=== PATIENT | female | born 1940 ===

== ENCOUNTER 2016-10-22 16:15 | Inpatient (IN) | payer MEDICARE, OTHER ==
[~2016-10-22] VITALS: Ht 162.6 cm; Wt 91.1 kg
--- NOTE | ~2016-10-22 | HP ---
PATIENT'S NAME: CANDIDO AUGUSTE [facility] AGE: 76 Y [address] ROOM: [address] [place], [place] [address] LOCATION: [facility] ADMIT DATE: 10/22/2016 History & Physical DISCHARGE DATE: FAMILY PHYSICIAN: Ochoa Guzman MD ATTENDING PHYSICIAN: SAMIRA RYAN DATE OF SERVICE: CHIEF COMPLAINT: Acute respiratory failure with hypoxia, hypertensive emergency. HISTORY OF PRESENT ILLNESS: This is a 76-year-old female with history of COPD, hypertension, who presented to the emergency room with an acute respiratory distress. The patient tells me that she has been having upper respiratory-type symptoms with cough since 3- 4 days ago and had seen her primary care physician at the [facility] for evaluation on Thursday and was started on Z-Curt and steroids for management of that. However, the patient continued to feel worse and went in for an urgent visit to the clinic today. Upon her arrival there, she was found to be in severe respiratory distress and the squad was called and she was brought over to the emergency room for evaluation. During that initial evaluation, the patient's blood pressure was noted to be 220s/110s, and she was in severe respiratory distress. The patient was started on BiPAP and given 40 mg IV Lasix. Her blood pressure improved with addition of nitro drip, and the patient improved significantly and symptomatically after that. The patient during my evaluation at bedside tells me that she feels much better now and she is off BiPAP. Denies any chest pain, chest tightness, dizziness, or lightheadedness. She does complain of soreness in her voice and sore throat. Denies any palpitations, vision changes, headaches. Denies any numbness, tingling, and weakness of her extremities as well. She does have a cough that is predominantly nonproductive. She denies any fever or chills. PAST MEDICAL HISTORY: 1. Hypertension. 2. COPD. 3. Hyperlipidemia. SOCIAL HISTORY: The patient has now quit. Denies any use of alcohol or drugs. FAMILY HISTORY: The patient does not report new history of hypertension, diabetes, respiratory problems including COPD in the family. REVIEW OF SYSTEMS: PATIENT'S NAME: CANDIDO AUGUSTE [facility] AGE: 76 Y [address] ROOM: [address] [place], [place] [address] LOCATION[facility] ADMIT DATE: 10/22/2016 History & Physical DISCHARGE DATE: FAMILY PHYSICIAN: Ochoa Guzman MD ATTENDING PHYSICIAN: SAMIRA RYAN A 10-point review of systems was conducted and were all negative except as mentioned in the HPI. PHYSICAL EXAMINATION: VITAL SIGNS: Blood pressure 220/110, afebrile, respiratory rate 22, pulse 71, saturating 95% on 3 liters of oxygen per nasal cannula. GENERAL: The patient is awake, alert, and oriented x3, in no apparent distress. HEENT: Moist mucous membranes. No conjunctival pallor or scleral icterus noted. SKIN: Without rash or lesions. LUNGS: Diffusely diminished breath sounds, but no wheezing, rhonchi, or rales appreciated. HEART: S1 and S2. Regular rate and rhythm. ABDOMEN: Soft, nontender, and nondistended with positive bowel sounds. MUSCULOSKELETAL: No joint pain, redness, swelling, effusion appreciated. No muscle pain appreciated as well. NEURO: Grossly nonfocal. EXTREMITIES: Without edema. LABORATORY DATA: Potassium is 3.4. Pro-BNP 1700, baseline around 1000. Troponin and EKG nondiagnostic. ASSESSMENT AND PLAN: 1. Hypertensive emergency with acute respiratory failure with hypoxia. The patient's initial blood pressure was 220/120. The patient is symptomatically much improved after initiation of a nitro drip and a dose of Lasix. At this point, we will continue her home medications orally with 20 of p.o. lisinopril as well as Coreg 12.5 b.i.d. and continue nitro drip and titrate to a goal of around 160 systolic for now and slowly bring that down. Respiratory crawley, the patient looks much improved. We will also work on titrating blood pressure as needed after overnight observation. 2. Acute on chronic respiratory failure with hypoxia. This is related to hypertensive emergency. Continue management as above. 3. Hyperlipidemia. Continue the patient on statin therapy. 4. Bronchitis. Viral versus bacterial. The patient had been on Z-Curt as outpatient. The patient has multiple histories of bronchitis that is recurrent. Chest x-ray does not show any signs of lower respiratory tract infection. 5. Deep vein thrombosis prophylaxis. We will use Lovenox subcutaneously. 6. Hypokalemia. We will apprise with oral potassium. PATIENT'S NAME: CANDIDO AUGUSTE [facility] AGE: 76 Y [address] ROOM: [address] [address] LOCATION: [facility] ADMIT DATE: 10/22/2016 History & Physical DISCHARGE DATE: FAMILY PHYSICIAN: Ochoa Guzman MD ATTENDING PHYSICIAN: SAMIRA RYAN MD ALFONSO LOVELACE/modl /[id number] D: [id number] T: [id number] HISTORY & PHYSICAL
--- NOTE | ~2016-10-22 | ECHO ---
Transthoracic Echocardiography Report (TTE) Demographics Patient Name CANDIDO AUGUSTE Date of Study 10/23/2016 Patient Number [id number] Visit Number [id number] Date of 1940 Room Number [address]304 Accession Number [id number] Gender Female Age 76 year(s) Referring Thomas Banks Scientific Database Curator Miriam Price Physician MD Kevin Blanco T [facility] Physician Gutierrez Rodriguezhavas[facility] regional medical centerm[facility] Sand Caster Physician Suyapa MEJIA Supervising Ordering Physician Rosalba Gonzalez MD/MARY MEJIA Nurse Stress Territory Sales Consultant Conclusions Contractility Score Summary Normal Left Ventricular contractility was noted. Summary The estimated left ventricular ejection fraction is 55% with normal WM.The left ventricle is normal in size .Mild concentric left ventricular hypertrophy with the apex appear more hypertrohied.(Apical hypertrophic cardiomyopathy?) Mild mitral annular calcification. Non specific thickening of the mitral valve leaflets. Mild mitral regurgitation by color Doppler. Mild aortic sclerosis. Mildly dilated RA. Trivial TR with normal pulmonary pressures. Procedure Type of Study TTE procedure:2D Echocardiogram, M-Mode, Doppler , Color Doppler. Procedure Date Date: 10/23/2016 Start: 10:04 AM Study Location: Inpatient Portable Technical Quality: Adequate visualization Indications:Hypertension and Shortness of breath. Additional Indications:Hypoxia Appropriate Use Criteria: 9 Patient Status: Routine HR: 64 bpm BP: 159/73 mmHg M-Mode/2D Measurements LV Diastolic Dimension: 5.14 cm LV Systolic Dimension: 3.53 cm LV Septum Diastolic: 1.08 cm LV PW Diastolic: 1.06 cm AO Root Dimension: 2.8 cm Cardiac Output: 3.4 l/min AV Cusp Separation: 1.7 cm RV Diastolic Dimension: 2.15 cm LA volume: 36 ml LVOT: 1.8 cm RV Base: 3.11 cm LVOT VTI: 20.9 cm RV Mid: 2.41 cm LV Stroke volume: 53.16 ml TAPSE: 1.8 cm TDI-S': 13 cm/s Doppler Measurements AV Peak Velocity: 1.48 m/s MV Peak E-Wave: 0.78 m/s AV Peak Gradient: 8.76 mmHg MV Peak A-Wave: 1.09 m/s AV Mean Gradient: 4 mmHg MV E/A Ratio: 0.72 LVOT Peak Velocity: 0.9 m/s MV P1/2t: 75 msec TR Gradient:18.32 mmHg PV Peak Velocity: 1.15 m/s Estimated RAP:3 mmHg PV Peak Gradient: 5.29 mmHg Estimated RVSP: 21 mmHg Estimated PASP: 21.32 mmHg E' Septal Velocity: 0.05 m/s A' Septal Velocity: 0.07 m/s E' Lateral Velocity: 0.06 m/s A' Lateral Velocity: 0.08 m/s Findings Left Ventricle The left ventricle is normal in size .Mild concentric left ventricular hypertrophy.Possible apical hypertrophy.Normal EF and WM. Right Ventricle Normal right ventricle structure and function. Left Atrium Normal left atrial size. Right Atrium The right atrium is mildly dilated. Mitral Valve Mild mitral annular calcification. Moderate thickening of the mitral valve leaflets. Mild mitral regurgitation by color Doppler. Aortic Valve The aortic valve is mildly sclerotic. Tricuspid Valve Normal tricuspid valve structure and function. Trivial tricuspid regurgitation by color Doppler. Pulmonic Valve Normal pulmonic valve structure and function. Pericardial Effusion No evidence of pericardial effusion. Miscellaneous Visualized portions of the aortic root and ascending aorta appear normal in size. Pleural Effusion No evidence of pleural effusion. Contractility Score LV regional wall motion:(0-Non visualized 1-Normal 2-Hypokinesis 3-Akinesis 4-Dyskinesis 5-Aneurysm) Signature dtt: Suyapa Unger dtd: 10/23/16 1004 Physician Self Edit
--- NOTE | ~2016-10-22 | DS ---
PATIENT'S NAME: CANDIDO AUGUSTE [facility] AGE: 76 Y [address] ROOM: [address] [address] LOCATION: [facility]U ADMIT DATE: 10/22/2016 Discharge Summary DISCHARGE DATE: 10/27/2016 FAMILY PHYSICIAN: Ochoa Guzman MD ATTENDING PHYSICIAN: Nico Cid PRINCIPAL DIAGNOSES: 1. Acute hypoxic respiratory failure. 2. Hypertensive emergency. BRIEF HOSPITAL COURSE: This is a 76-year-old female, does admitted to the hospital after presenting with an acute onset shortness of breath and found to be in respiratory failure related to volume overload and hypertensive Emergency. The patient's blood pressure during hospitalization was treated and lowered to appropriate levels as well as some IV Lasix was given. The patient's respiratory failure has resolved. The patient checked for supplemental oxygen requirement as outpatient during the hospitalization, and has not met criteria for that as well. During my evaluation today, the patient is doing well and has no complaints. She was able to get around and ambulate without difficulty. The patient is being discharged in stable condition and would follow up with her physician within the week. The patient has a slight white blood cell elevation at 16,000 today, but this was not explained that symptomatically. She had been on steroids for a while as well. In any case, she will closely follow up with her PCP within this week. Greater than 30 minutes were spent in discharge planning. MD ALFONSO LOVELACE/modl /[id number] d: 10/28/16905 t: 11/18/16925, DISCHARGE SUMMARY
--- NOTE | ~2016-10-22 | PUL ---
PATIENT'S NAME: CANDIDO AUGUSTE [facility] AGE: 76 Y [address] ROOM: [address] [address] LOCATION: [facility]PCU ADMIT DATE: 10/22/2016 Pulmonary DISCHARGE DATE: 10/27/2016 FAMILY PHYSICIAN: Ochoa Guzman MD ATTENDING PHYSICIAN: Nico Cid NAME OF PROCEDURE: Overnight Pulse Oximetry DATE OF PROCEDURE: October 26 to October 27, 2016 REASON FOR EXAM: Nocturnal hypoxemia RESULTS: The test was performed on room air. The recording time was 8 hours, 33 minutes, with a total valid sampling time of 7 hours, 43 minutes, and 56 seconds. The highest pulse was 78, lowest pulse was 63, with a mean pulse of 69. The highest SpO2 was 92%, lowest SpO2 was 85%, with a mean SpO2 of 88.8%. The patient spent 2 hours, 35 minutes, and 56 seconds with SpO2 less than 89%, representing 33.6% of the total sleep time. The desaturation event index was normal at 0.3 events per hour. PHYSICIAN INTERPRETATION: The patient has evidence of significant nocturnal hypoxia and would qualify for supplemental oxygen as per Medicare criteria. KORI MEZA MD RFBeto/ks /[id number] dtt: 10/29/16 1152 , KORI MEZA dtd: 10/27/16 1554
--- NOTE | ~2016-10-22 | ER ---
PATIENT'S NAME: CANDIDO AUGUSTE [facility] AGE: 76 Y [address] ROOM: [address] [address] LOCATION: [facility]PCU ADMIT DATE: 10/22/2016 ER/Outpatient Report DISCHARGE DATE: FAMILY PHYSICIAN: Ochoa Guzman MD ATTENDING PHYSICIAN: SAMIRA CID Time of Arrival: 1620 hours. Time of Evaluation: 1620 hours. IDENTIFICATION: A 76-year-old female. CHIEF COMPLAINT: Shortness of breath. HISTORY OF PRESENT ILLNESS: The patient was seen at the [facility] on Thursday and clinically diagnosed with pneumonia. She did have a two-view chest x-ray, which I do not have an official report on. I do have her clinic visit note from Thursday, that was brought over by EMS with her. She was treated with Zithromax and prednisone. She took 2 tablets of Zithromax on Thursday, 1 tablet on Thursday, 1 tablet today. She took prednisone 10 mg 3 tablets on Thursday, 2 on Thursday, and 1 so far today. The patient was seen in the clinic today for acute shortness of breath. She is really so short of breath at this time that not able to answer much for questions. I did review the records, EMS report, and then when the patient was breathing better confirmed the report with her. She has had no fever or chills. She has had a cough productive of green and yellow sputum. She was acutely short of breath. They called 911. EMS transported the patient on CPAP, and she received 2 albuterol treatments and a DuoNeb. She was placed on BiPAP on arrival here to the emergency room. She is significantly hypertensive, was given Lasix 40 mg IV, and nitroglycerin drip per the protocol. She began to feel much improved after that and remains stable at this time without needing intubation. PAST MEDICAL HISTORY: Reviewed. ALLERGIES: LEVAQUIN, PENICILLIN, KEFLEX, SULFA, AND DOXYCYCLINE. SHE TELLS ME THAT ERYTHROMYCIN IS THE ONLY ANTIBIOTIC SHE CAN TOLERATE. CURRENT MEDICATIONS: 1. Advair Diskus 1 puff 2 times daily. 2. Hydroxyzine 50 mg at h.s. 3. Omeprazole 20 mg daily. PATIENT'S NAME: CANDIDO AUGUSTE [facility] AGE: 76 Y [address] ROOM: [address] [place], [place] [address] [facility] AD[facility] DATE: 10/22/2016 ER/Outpatient Report DISCHARGE DATE: FAMILY PHYSICIAN: Ochoa Guzman MD ATTENDING PHYSICIAN: SAMIRA CID 4. Aspirin 81 mg daily. 5. Gabapentin 300 mg at h.s. 6. Nitrostat p.r.n. 7. Spiriva HandiHaler 18 mcg daily. 8. Pravastatin 20 mg daily. 9. MiraLAX 17 g b.i.d. 10. Proventil 4 times daily as needed. 11. Methenamine hippurate 1 g b.i.d. 12. Lisinopril 20 mg daily. 13. Lasix 20 mg daily, which she did take a total of 40 mg today. 14. Carvedilol 12.5 mg b.i.d. 15. KCl 20 mEq t.i.d. 16. Meclizine 25 mg t.i.d. p.r.n. 17. Flonase nasal spray 2 sprays each nostril once daily. 18. ProAir 2 puffs every 6 hours as needed. 19. Colestid 1 g 2 times daily. 20. Nexium 20 mg daily. 21. Mucinex 600 mg b.i.d. 22. Fiber Formula 2 daily. 23. Vitamin D 2000 units daily. MEDICAL PROBLEMS: COPD, hypertension, recurrent UTIs, bladder prolapse, chronic lower extremity edema. The patient states she has stents in her legs. I am not certain about that, and then she describes maybe nonobstructive coronary artery disease. She had a cardiac catheterization revealing blockage but not enough to stent. This was apparently done at [facility] by Dr. Blancas. FAMILY HISTORY: Father with lymphoma, at age 45. Paternal grandmother with heart disease. PRIOR SURGERIES: RAUL-BSO at age 27, arthroscopy of knee. LABORATORY DATA: Labs were reviewed from the clinic on Thursday. She had a white count of 8.1. Chemistry panel was apparently unremarkable. ProBNP 1068. O2 saturation 95%. Chest x-ray here, no definite infiltrate, maybe mild increased pulmonary vascularity, no significant findings on one-view chest x-ray. D-dimer is normal at 0.36. Hemoglobin 14.2, hematocrit 42.2, platelets 268, white count 13.4 with 80% neutrophils. INR 1.0. Sodium 133, potassium 3.4, chloride 94, CO2 of 30, BUN 9, creatinine 0.8, blood sugar 135. Liver enzymes normal. Magnesium 1.7. CPK 99, CK-MB 2.4. Troponin I less than 0.040. ProBNP 1774, which is up from 1068 on October 20. PATIENT'S NAME: CANDIDO AUGUSTE [facility] AGE: 76 Y [address] ROOM: [address] [place], [place] [address] LOCATION: GPCU ADMIT DATE: 10/22/2016 ER/Outpatient Report DISCHARGE DATE: FAMILY PHYSICIAN: Ochoa Guzman MD ATTENDING PHYSICIAN: SAMIRA CID IMPRESSION: 1. Acute respiratory failure, the patient was placed on BiPAP, 45% FiO2, settings of 12 and 6. 2. Acute systolic congestive heart failure. Lasix 40 mg IV, nitroglycerin drip per protocol. BiPAP. 3. Possible history of pneumonia. The patient is on oral Zithromax. She is afebrile here. White count mildly elevated. No infiltrate on x-ray. Influenza is pending. No IV antibiotics given in the ER due to her multiple allergies, and I did discuss this with Dr. Cid as well as the patient. 4. Hypertensive emergency. Nitroglycerin drip per protocol. 5. Nonobstructive coronary artery disease. Initial EKG and enzymes are negative for acute findings. Serial EKG and enzymes. 6. Mild hypokalemia, potassium 3.4. 7. Mild hyponatremia, sodium 133. 8. Chronic obstructive pulmonary disease, currently on oral steroids tapering. PLAN: For admission to PCU telemetry by Dr. Cid. Cultures have all been obtained. Urine and urine culture are pending. Influenza is pending. 35 minutes were spent improved critical care with this patient on arrival, reviewing [facility] records, discussing with the EMS. Discussion with and phone call to Dr. Cid. MD ZULEIKA LEONE/ashleighl /[id number] d: 10/23/16 0156 t: 10/23/16 1443, OUTPATIENT REPORT
--- NOTE | ~2016-10-22 | DS ---
PATIENT'S NAME: CANDIDO AUGUSTE [facility] AGE: 76 Y [address] ROOM: [place] [address] LOCATION: GPCU ADMIT DATE: 10/22/2016 Discharge Summary DISCHARGE DATE: FAMILY PHYSICIAN: Ochoa Guzman MD ATTENDING PHYSICIAN: Nico Cid Interim Discharge Summary Given that I will not be here next week, therefore, this summary will serve as a summary for the hospitalist coming next week to take care of the patient. Therefore, any further changes or updates and discharge medications will be dictated by the discharging hospitalist on the actual day of discharge. DATE OF DISCHARGE: To be determined. DISCHARGE DIAGNOSES: 1. Acute hypoxemic respiratory failure secondary to chronic obstructive pulmonary disease exacerbation secondary to viral bronchitis and also acute diastolic congestive heart failure secondary to hypertensive emergency. 2. Hypokalemia. 3. Muscle spasms in the lower back. PAST MEDICAL HISTORY: 1. Hypertension. 2. Hyperlipidemia. 3. COPD, at baseline, not on home oxygen. She has a chronic whitish productive cough daily for many years. DISCHARGE MEDICATIONS: Will be dictated by the hospitalist on the actual day of discharge. FOLLOWUP PLAN: Currently, the followup plan will be depending on her clinical condition and how she is feeling and how she is doing. Tomorrow, the patient could be potentially be discharged home. If the patient does go home tomorrow, the patient is already getting the nocturnal trend oxygen saturation tonight on October 26, 2016, in anticipation for discharge on October 27, 2016, to see if she would qualify for nocturnal oxygen when she goes home. If she goes home tomorrow prior to discharge, please also ask our respiratory therapist to perform oxygen saturation test at rest and also on exertion on room air and home oxygen to see if she would qualify for a daytime oxygen on rest and also on exertion. Eventually upon discharge, the patient is to follow up with the primary care physician and have the primary care physician refer her to see a lithographic general worker for long-term care for her COPD. If she qualifies for nocturnal oxygen, then she likely also has sleep apnea, therefore she will also need a PATIENT'S NAME: CANDIDO AUGUSTE [facility] AGE: 76 Y [address] ROOM: [place] [id number] LOCATION: GPCU ADMIT DATE: 10/22/2016 Discharge Summary DISCHARGE DATE: FAMILY PHYSICIAN: Ochoa Guzman MD ATTENDING PHYSICIAN: Nico Cid formal sleep study which can be arranged by the lithographic general worker to qualify her for CPAP or BiPAP at night. Please follow up with her condition tomorrow and her blood work to see if she feels comfortable and safe to go home tomorrow. INVESTIGATIONS DURING THE HOSPITALIZATION: Chest x-ray on admission showed normal chest. No apparent change. Chest x-ray on October 24, 2016, showed normal chest. No change. LABORATORY DATA: On admission ABG showed pH 7.4, pCO2 52, PO2 91, bicarbonate 32.2, and saturation 97%, FiO2 35 on BiPAP. Lactic acid 1.4 on admission and 1.4 on October 25, 2016. ProBNP 1068 on October 20, 2016, followed by 1774 on October 22, 2016, followed by 219 on October 25, 2016. Troponin less than 0.04, CPK 99, CK-MB 2.4, the first set. On admission, CBC showed white blood cells 13.4, hemoglobin 14.2, hematocrit 42.2, MCV 92.3, and platelet 268. On October 25, 2016, white blood cells 11.9, hemoglobin 13.2, hematocrit 39.6, MCV 93.2, and platelet 293. Chemistry on admission showed glucose 135, BUN 9, creatinine 0.8, sodium 133, potassium 3.4, chloride 94, CO2 30, and calcium 8.7. On the day of my dictation, glucose 93, BUN 32, creatinine 0.8, sodium 138, potassium 3.7, chloride 97, CO2 31, and calcium 8.5. Liver function testing on admission showed total protein 8.5, albumin 4.1, AST 17, ALT 18, alkaline phosphatase 79, total bilirubin 0.5. Phosphorus 2.9, magnesium 1.9. GFR more than 60 throughout the entire hospitalization. INR 1.0, PTT 27 on admission. Urinalysis negative for UTI. Procalcitonin less than 0.05 on admission and also on October 25, 2016. Influenza nasal antigen swab negative on this admission. D-dimer is 0.36 on admission. A transthoracic echo performed October 23, 2016, showed normal left ventricular contractility. EF of 55%. Normal wall motion. Mild concentric left ventricular hypertrophy. Mild mitral annular calcification. Nonspecific thickening of the mitral valve leaflets. Mild mitral regurgitation. Mild aortic sclerosis. Mildly dilated right atrium. Trivial tricuspid regurgitation with normal pulmonary pressure. Microbiology study showed that the blood culture 2 sets on October 22, 2016, showed no growth, is preliminary. Sputum culture, Gram stain, on this admission showed normal kirsten on October 23, 2016. Urine culture also obtained showed no growth, is preliminary. This was obtained on October 22, 2016. CONSULTANTS INVOLVED IN CARE: Hospitalist Team. PATIENT'S NAME: CANDIDO AUGUSTE [facility] AGE: 76 Y [address] ROOM: [place] [address] LOCATION: GPCU ADMIT DATE: 10/22/2016 Discharge Summary DISCHARGE DATE: FAMILY PHYSICIAN: Ochoa Guzman MD ATTENDING PHYSICIAN: Nico Cid ADMISSION HISTORY AND HOSPITAL COURSE: For the complete history and physical, refer to history and physical dictated on the day of admission. In summary, this is a 76-year-old, female, with past medical history as mentioned above, who presented here with shortness of breath at rest and also on exertion and associated with worsening of productive cough, usually with some white sputum, but now has turned into yellow and greenish sputum for the last few days. She was recently seen at the [facility], treated with Z-Curt and steroids for her presumed bronchitis, but did not show much improvement. She went back to the office and was found to have hypertensive emergency with blood pressure in 220/110 and severe dyspnea. The patient was put on BiPAP and given IV Lasix and also put on nitroglycerin drip in our emergency room when she was transferred here, and the patient had shown significant improvement with blood pressure and also improvement in the dyspnea. The patient was admitted for the discharge diagnoses mentioned above. 1. Acute hypoxemic respiratory failure secondary to COPD exacerbation from viral bronchitis and acute diastolic heart failure secondary to hypertensive emergency: The patient did have pneumonia workup, which all came back negative. There is no finding to suggest pneumonia in this patient. Chest x-ray was also clean. Her presentation is more consistent with viral bronchitis. Influenza was negative. The patient was treated with IV steroids and currently put on p.o. prednisone tapering dose and also continued on the azithromycin as part of the COPD exacerbation, which she already finished. Currently, still on the prednisone tapering. She is put on nebulizations, oxygen nasal cannula, incentive spirometry, and flutter valve. The patient has already shown significant improvement. She is able to ambulate well without much dyspnea, but still required some oxygen at 1 L nasal cannula saturating at 94% on exertion. The plan right now, we will continue with steroid taper and continue nebulization. Upon discharge, the patient should have her primary care physician refer her to see a lithographic general worker for long-term COPD care. If the patient is okay to go home tomorrow, the patient is already getting the nocturnal oxygen trend saturation tonight, October 26, 2016, to see if she qualifies for nocturnal oxygen and prior to discharge on the same day of discharge, the patient should also get oxygen test to see if she qualifies for daytime oxygen with oxygen level at rest and also on exertion with and without oxygen to see if she qualifies. 2. Acute diastolic heart failure from hypertensive emergency: The patient states that she is compliant with her home medication. Likely, the home medication was not enough for her blood pressure control. The patient was treated with nitroglycerin drip and p.r.n. labetalol and hydralazine and also put back on her home blood pressure medication, and her home medication dosage has already been maxed out except lasix. Currently lisinopril which she was taking 20 mg p.o. daily has increased to 40 mg p.o. daily. Lasix, she PATIENT'S NAME: CANDIDO AUGUSTE [facility] AGE: 76 Y [address] ROOM: [address] [place] [id number] [facility] ADMIT DATE: 10/22/2016 Discharge Summary DISCHARGE DATE: FAMILY PHYSICIAN: Ochoa Guzman MD ATTENDING PHYSICIAN: Kenrick Cidkar was taking 20 mg daily has increased to 40 mg p.o. daily. Coreg, she takes 12.5 mg p.o. b.i.d. and that has been the same given that her heart rate was in low 60s therefore, increasing the Coreg dose would not be ideal. Currently, blood pressure is under good control. I will continue the current regimen. She was also started on hydralazine 10 mg p.o. q.6 hours, which is working wonderful for her at the moment, can increase to 25 mg p.o. q.6 hours if necessary. Echo was performed. EF is 55%, and the patient was initially diuresed with IV Lasix and that has been transitioned to p.o. and currently is working very well. She is feeling much better and her proBNP also greatly improved. The plan now will be treat the proBNP again in the morning and see how she is doing and can discharge her with the current medication or adjust the dosage if necessary depending on her clinical course tomorrow. The patient will also benefit with some home potassium low dose replacement if necessary given that she is taking Lasix at home. At home, she takes 40 mEq p.o. b.i.d., this dose maybe too high, this dose may have to be adjusted. Depending on her potassium tomorrow, the decision to adjust the home potassium can be decided by the hospitalist working on the actual day of discharge. Troponin was normal. There was no motion abnormality on the echocardiogram, therefore ischemia at this point less likely. With every diastolic heart failure, the guideline recommend blood pressure control with any agent does not have to be beta hilda because this is not a systolic heart failure. The guideline says that the diastolic heart failure should be controlled with the blood pressure control and heart rate control and rule out ischemia and diuretics with Lasix. 4. Lower back muscle spasm: She is taking a Flexeril 10 mg p.o. t.i.d. p.r.n. with Lidoderm patch daily p.r.n. with good response. There is no finding to suggest spinal cord compression given that her lower back pain is in the left paraspinal muscles in the lumbar area and is not in the midline. There is no radiation to the lower leg, the pain is localized. The plan will be PT/OT and also with Flexeril p.r.n. and also with Lidoderm patch. 5. Hypertension: As mentioned before, can increase hydralazine to 25 mg p.o. q.6 hours if necessary. Any further change in updates will be dictated as an addendum by the discharging hospitalist on the actual day of discharge. Time spent on the day of discharge 45 minutes including patient care today and followup plan and dictation as well as a coordinating the care with the nurse and with the RT to perform the nocturnal trend oxygen tonight and assess home oxygen during daytime on the day of discharge. PATIENT'S NAME: CANDIDO AUGUSTE [facility] AGE: 76 Y [address] ROOM: [address] [place] [id number] [facility] ADMIT DATE: 10/22/2016 Discharge Summary DISCHARGE DATE: FAMILY PHYSICIAN: Ochoa Guzman MD ATTENDING PHYSICIAN: Nico Cid ROGE UREÑA MD CC/modl /[id number] d: 10/26/16 2325 t: 11/06/16 0203, DISCHARGE SUMMARY
[~2016-10-22 16:15] MED LIST changes: -ALKA-SELTZER P1 EAC1 PO; -APRESOLINE25 MG PO; -BENADRYL25 MG PO; -COLESTID1 GM PO; -DELTASONE10 MG PO; -FIBER LAX625 MG PO; -FLEXERIL10 MG PO; -LASIX40 MG PO; -MAG-OX-400(241400 MG PO; -NORVASC10 MG PO; -TYLENOL EXTRA500 MG PO; -TYLENOL PM EX-1 EACH; -VITAMIN D2000 UNI1 PO; -ZITHROMAX250 MG
[2016-10-22 16:32] LABS: BICARBONATE 32.2 mmol/L (18.0-23.0); LACTATE 1.4 mEq/L (0.50-1.60); PCO2 52 mmHg (35-45); PO2 91 mmHg (80-90)
[2016-10-22 16:51] LABS: BASOPHIL # 0.1 K/uL (0.0-0.2); BASOPHIL % 0.4 %; EOSINOPHIL % 0.2 %; HEMATOCRIT 42.2 % (33.0-46.0); HEMOGLOBIN 14.2 g/dL (10.0-15.0); IMMATURE GRANULOCYTE % 0.3 %; LYMPHOCYTE # 1.5 K/uL (0.8-4.0); LYMPHOCYTE % 10.9 %; MCH 31.1 pg (27.0-34.0); MCHC 33.6 gm/dL (32.0-36.5); MCV 92.3 fl (83.0-98.0); MONOCYTE % 7.7 %; MPV 9.9 fl (9.4-12.4); NEUTROPHIL # (ANC) 10.8 K/uL (1.8-7.8); NEUTROPHIL % 80.5 %; NRBC % 0 /100WBC (0-0.00); PLATELET COUNT 268 K/uL (150-450); RBC 4.57 M/uL (3.50-5.50); RDW-CV 11.9 % (11.9-14.6); WBC 13.4 K/uL (4.0-11.0)
[2016-10-22 17:02] LABS: PROTIME 10.4 SECONDS (9.6-11.1); PTT 27 SECONDS (25-32)
[2016-10-22 17:10] LABS: ALBUMIN 4.1 gm/dL (3.5-5.0); ALK PHOS 79 IU/L (33-138); ALT 18 IU/L (12-78); ANION GAP 12.4 (10.0-19.0); AST 17 IU/L (10-40); BLOOD UREA NITROGEN 9 mg/dL (6-24); CALCIUM 8.7 mg/dL (8.5-10.5); CHLORIDE 94 mMol/L (96-110); CO2 30 mMol/L (22-32); CPK 99 IU/L (21-215); CREATININE 0.8 mg/dL (0.5-1.1); ESTIMATED GFR (MDRD EQUATION) > 60; MAGNESIUM 1.7 mg/dL (1.3-2.6); POTASSIUM 3.4 mMol/L (3.7-5.1); SODIUM 133 mMol/L (135-145); TOTAL BILIRUBIN 0.5 mg/dL (0.0-1.5); TOTAL PROTEIN 8.5 g/dL (6.0-8.4)
[2016-10-22 17:25] LABS: BILIRUBIN URINE NEGATIVE (NEGATIVE); BLOOD URINE 10 /UL (NEGATIVE); COLOR URINE COLORLESS (YELLOW); GLUCOSE URINE NEGATIVE (NEGATIVE); KETONE URINE NEGATIVE (NEGATIVE); LEUKOCYTES URINE NEGATIVE /UL (NEGATIVE); NITRITE URINE NEGATIVE (NEGATIVE); PROTEIN URINE 100 mg/dL (NEGATIVE); TURBIDITY URINE CLEAR (CLEAR); UROBILINOGEN URINE NORMAL (NORMAL)
[2016-10-22 17:30] LABS: BACTERIA URINE NEGATIVE (NEGATIVE); EPITHELIAL URINE 0-2 #/HPF (NEGATIVE); RBC URINE 0-2 #/HPF (NEGATIVE); WBC URINE NEGATIVE #/HPF (NEGATIVE)
[2016-10-22] MEDS ORDERED: TYLENOL EXTRA500 MG PO (18:57)
[2016-10-22] MEDS ORDERED: TYLENOL PM EX-1 EACH (18:58)
[2016-10-22] MEDS ORDERED: ZITHROMAX250 MG (19:07)
[2016-10-22] MEDS ORDERED: LASIX40 MG PO (19:09)
[2016-10-22] MEDS ORDERED: DELTASONE10 MG PO (19:09)
[2016-10-22] MEDS ORDERED: COLESTID1 GM PO (19:10)
[2016-10-22] MEDS ORDERED: VITAMIN D2000 UNI1 PO (19:12)
[2016-10-22] MEDS ORDERED: FIBER LAX625 MG PO (19:12)
[2016-10-22] MEDS ORDERED: ALKA-SELTZER P1 EAC1 PO (19:13)
[2016-10-22] MEDS ORDERED: BENADRYL25 MG PO (19:13)
[2016-10-23 04:27] LABS: BASOPHIL % 0.1 %; HEMATOCRIT 38.3 % (33.0-46.0); HEMOGLOBIN 12.9 g/dL (10.0-15.0); IMMATURE GRANULOCYTE # 0.1 K/uL (0.0-0.3); IMMATURE GRANULOCYTE % 0.7 %; LYMPHOCYTE # 1.2 K/uL (0.8-4.0); LYMPHOCYTE % 12.5 %; MCH 30.7 pg (27.0-34.0); MCHC 33.7 gm/dL (32.0-36.5); MCV 91.2 fl (83.0-98.0); MONOCYTE # 0.3 K/uL (0.0-1.0); MONOCYTE % 3.2 %; MPV 10.2 fl (9.4-12.4); NEUTROPHIL % 83.5 %; NRBC % 0 /100WBC (0-0.00); PLATELET COUNT 282 K/uL (150-450); RDW-CV 11.9 % (11.9-14.6); WBC 9.5 K/uL (4.0-11.0)
[2016-10-23 04:51] LABS: ALBUMIN 3.5 gm/dL (3.5-5.0); ALK PHOS 66 IU/L (33-138); ALT 19 IU/L (12-78); ANION GAP 13.9 (10.0-19.0); AST 12 IU/L (10-40); CALCIUM 8.6 mg/dL (8.5-10.5); CHLORIDE 93 mMol/L (96-110); CO2 28 mMol/L (22-32); CREATININE 0.9 mg/dL (0.5-1.1); ESTIMATED GFR (MDRD EQUATION) > 60; PHOSPHORUS 2.8 mg/dL (2.5-4.9); POTASSIUM 3.9 mMol/L (3.7-5.1); SODIUM 131 mMol/L (135-145); TOTAL PROTEIN 7.4 g/dL (6.0-8.4)
[2016-10-23 04:53] LABS: BLOOD UREA NITROGEN 14 mg/dL (6-24); TOTAL BILIRUBIN 0.3 mg/dL (0.0-1.5)
[2016-10-24 03:46] LABS: HEMATOCRIT 36.8 % (33.0-46.0); HEMOGLOBIN 12.5 g/dL (10.0-15.0); MCH 31.1 pg (27.0-34.0); MCV 91.5 fl (83.0-98.0); MPV 10.2 fl (9.4-12.4); PLATELET COUNT 290 K/uL (150-450); RBC 4.02 M/uL (3.50-5.50); RDW-CV 11.9 % (11.9-14.6); WBC 12.4 K/uL (4.0-11.0)
[2016-10-24 03:52] LABS: ANION GAP 11.3 (10.0-19.0); CALCIUM 8.4 mg/dL (8.5-10.5); CHLORIDE 94 mMol/L (96-110); CO2 32 mMol/L (22-32); CREATININE 0.8 mg/dL (0.5-1.1); ESTIMATED GFR (MDRD EQUATION) > 60; MAGNESIUM 1.9 mg/dL (1.3-2.6); POTASSIUM 3.3 mMol/L (3.7-5.1); SODIUM 134 mMol/L (135-145)
[2016-10-24 03:53] LABS: BLOOD UREA NITROGEN 27 mg/dL (6-24)
[2016-10-24 05:13] LABS: ABSOLUTE NEUTROPHIL CT (ANC) 8.9 K/uL (1.8-7.8); BANDED NEUTROPHIL # 0.2 K/uL (0.0-0.1); BANDED NEUTROPHILS % 2 %; LYMPHOCYTE # 2.6 K/uL (0.8-4.0); LYMPHOCYTE % 21 %; MONOCYTE # 0.9 K/uL (0.0-1.0); SEGMENTED NEUTROPHIL # 8.7 K/uL (1.8-7.8); SEGMENTED NEUTROPHIL % 70 %
[2016-10-25 04:32] LABS: HEMATOCRIT 39.6 % (33.0-46.0); HEMOGLOBIN 13.2 g/dL (10.0-15.0); MCH 31.1 pg (27.0-34.0); MCHC 33.3 gm/dL (32.0-36.5); MCV 93.2 fl (83.0-98.0); MPV 10.1 fl (9.4-12.4); RBC 4.25 M/uL (3.50-5.50); WBC 11.9 K/uL (4.0-11.0)
[2016-10-25 04:55] LABS: ANION GAP 12.1 (10.0-19.0); BLOOD UREA NITROGEN 29 mg/dL (6-24); CALCIUM 8.6 mg/dL (8.5-10.5); CHLORIDE 98 mMol/L (96-110); CO2 32 mMol/L (22-32); CREATININE 0.8 mg/dL (0.5-1.1); ESTIMATED GFR (MDRD EQUATION) > 60; POTASSIUM 4.1 mMol/L (3.7-5.1); SODIUM 138 mMol/L (135-145)
[2016-10-26 04:44] LABS: ANION GAP 12.7 (10.0-19.0); BLOOD UREA NITROGEN 32 mg/dL (6-24); CALCIUM 8.5 mg/dL (8.5-10.5); CHLORIDE 97 mMol/L (96-110); CO2 31 mMol/L (22-32); CREATININE 0.8 mg/dL (0.5-1.1); ESTIMATED GFR (MDRD EQUATION) > 60; POTASSIUM 3.7 mMol/L (3.7-5.1); SODIUM 137 mMol/L (135-145)
[2016-10-27 04:52] LABS: HEMATOCRIT 41.4 % (33.0-46.0); HEMOGLOBIN 13.6 g/dL (10.0-15.0); MCH 30.8 pg (27.0-34.0); MCHC 32.9 gm/dL (32.0-36.5); MCV 93.7 fl (83.0-98.0); MPV 9.9 fl (9.4-12.4); RBC 4.42 M/uL (3.50-5.50)
[2016-10-27 04:55] LABS: WBC 16.3 K/uL (4.0-11.0)
[2016-10-27 05:11] LABS: ANION GAP 12.1 (10.0-19.0); BLOOD UREA NITROGEN 33 mg/dL (6-24); CALCIUM 8.9 mg/dL (8.5-10.5); CHLORIDE 101 mMol/L (96-110); CO2 29 mMol/L (22-32); CREATININE 0.7 mg/dL (0.5-1.1); ESTIMATED GFR (MDRD EQUATION) > 60; MAGNESIUM 2.3 mg/dL (1.3-2.6); POTASSIUM 4.1 mMol/L (3.7-5.1); SODIUM 138 mMol/L (135-145)
[2016-10-27] MEDS ORDERED: NORVASC10 MG PO (11:44)
[2016-10-27] MEDS ORDERED: APRESOLINE25 MG PO (11:54)
[2016-10-27] MEDS ORDERED: MAG-OX-400(241400 MG PO (12:00)
[2016-10-27] MEDS ORDERED: FLEXERIL10 MG PO (12:19)
== END 2016-10-27 13:50 | disposition disaster alternative care site (69) | DRG 189 ==
LOC: GMED 16:15 → GPCU 17:45
PROVIDERS: Family Medicine; Hospitalist; Internal Medicine; ADMIT Internal Medicine
DX: J96.21 Acute and chronic respiratory failure with hypoxia (principal); I50.31 Acute diastolic (congestive) heart failure; I16.1 Hypertensive emergency; J44.1 Chronic obstructive pulmonary disease with (acute) exacerbation; E78.5 Hyperlipidemia, unspecified; E87.6 Hypokalemia; I10 Essential (primary) hypertension; J20.8 Acute bronchitis due to other specified organisms; M62.830 Muscle spasm of back; Z87.891 Personal history of nicotine dependence
CPT/HCPCS: J1650; J1940; J7030; J7512

== ENCOUNTER → 2016-10-22 | Outpatient (CLI) | payer MEDICARE, OTHER ==
[~2016-10-22] MED LIST: ADVAIR 250-501 EACH INH; ALBUTEROL2.5 MG/31 INH; ALKA-SELTZER P1 EAC1 PO; APRESOLINE25 MG PO; ASPIRIN LO-DOSE81 MG PO; ATARAX50 MG PO; BENADRYL25 MG PO; COLESTID1 GM PO; COREG12.5 M1 PO; DELTASONE10 MG PO; FIBER LAX625 MG PO; FLEXERIL10 MG PO; FLONASE 50 MCG/16 GM NOSE; K-TAB ER20 MEQ; LASIX40 MG PO; MAG-OX-400(241400 MG PO; MECLIZINE HCL25 MG PO; MIRALAX17 GM PO; MONUROL3 GM PO; MUCINEX DM ER1 EAC1 PO; NEURONTIN300 MG PO; NEXIUM40 MG PO; NITROSTAT0.4 MG SL; NORVASC10 MG PO; PRAVACHOL20 MG PO; PRILOSEC20 MG PO; PRINIVIL (ZESTR20 MG PO; PROAIR HFA8.5 GM INH; SPIRIVA HANDIHA1 KIT INH; TYLENOL ARTHRI650 MG; TYLENOL EXTRA500 MG PO; TYLENOL PM EX-1 EACH; VITAMIN D2000 UNI1 PO; ZITHROMAX250 MG
== END | disposition disaster alternative care site (69) ==
LOC: GAMB 15:50
DX: R06.00 Dyspnea, unspecified (principal); R60.0 Localized edema; R06.02 Shortness of breath; R50.9 Fever, unspecified
CPT/HCPCS: A0422; A0425; A0427; J2405; J2930

== ENCOUNTER 2016-11-07 12:17 | Emergency (ER) | payer MEDICARE, OTHER ==
--- NOTE | ~2016-11-07 | ER ---
PATIENT'S NAME: CANDIDO AUGUSTE [facility] AGE: 76 Y [address] ROOM: [place] [id number] LOCATION: [facility] ADMIT DATE: 11/07/2016 ER/Outpatient Report DISCHARGE DATE: 11/07/2016 FAMILY PHYSICIAN: Ochoa Guzman MD ATTENDING PHYSICIAN: Bess Zapata Time of Arrival: 1220 hours. Time of Exam: 1230 hours. CHIEF COMPLAINT: Low blood pressure. HISTORY OF PRESENT ILLNESS: The patient states that she has been feeling weak all over this afternoon, checked her blood pressure at home approximately 45 minutes prior to arrival, she had a blood pressure of 83/43. States that she did see Dr. Guzman yesterday and they took her off her Norvasc and added an antibiotic because she continues to have a cough. She was hospitalized beginning of the month with pneumonia. She denies having a headache. She has not been dizzy or lightheaded. She states she just feels extremely weak and somewhat numb all over. She denies having any chest pain, has not been nauseated, has not vomited, denies having any abdominal pain, denies any pain with urination. ALLERGIES: ON HER CHART AND REVIEWED BY ME. CURRENT MEDICATIONS: On her chart and reviewed by me. PAST MEDICAL HISTORY: Includes COPD, hypertension, bladder prolapse, edema of the lower extremities, and coronary artery disease. PAST SURGERIES: Include hysterectomy and knee arthroscopy. SOCIAL HISTORY: She lives at home with her . Denies use of tobacco, drugs, or alcohol. Was a former smoker. REVIEW OF SYSTEMS: All negative other than those mentioned in the HPI. PHYSICAL EXAMINATION: VITAL SIGNS: She weighed 90.5 kg. Blood pressure is 139/63, pulse is 61, PATIENT'S NAME: CANDIDO AUGUSTE [facility] AGE: 76 Y [address] ROOM: [place] [address] LOCATION: [facility] ADMIT DATE: 11/07/2016 ER/Outpatient Report DISCHARGE DATE: 11/07/2016 FAMILY PHYSICIAN: Ochoa Guzman MD ATTENDING PHYSICIAN: Bess Zapata respirations 20, temperature of 97.8, and O2 saturation was 96% on room air. GENERAL: She is awake, alert, and oriented x4. SKIN: [place], warm, and dry. NEURO: She is somewhat slow to answer her questions, but facial expressions are symmetrical, smile is even, she follows commands easily. Has good hand grasp. Good sensation to all of her extremities including her legs. DIAGNOSTIC DATA: EKG: Sinus rhythm. Head CT was completed and was negative per radiologist. CBC is within normal limits. Chem panel shows a BUN of 35 with a creatinine of 1.1. Her GFR is down to 48. Lactate was 1.2. ProBNP was 298. Procalcitonin was less than 0.05. Clean-catch UA was obtained, it is negative. EMERGENCY DEPARTMENT COURSE: The patient states just resting on the cart she was feeling better. Blood pressure remained stable. Monitor continued to be sinus rhythm. The patient was reviewed with Dr. Zapata. She was given a fluid bolus of 500 mL. She states she is feeling better and would like to go home. Orthostatic blood pressures were normal. IMPRESSION: 1. Weakness. 2. Mild dehydration. PLAN: Home. Rest. Continue with antibiotics. Check her blood pressure before bedtime; if her systolic blood pressures less than 100, she should hold off taking her lisinopril. Encouraged her to follow up with Dr. Guzman's office on Thursday regarding her current blood pressure medications. She is to return to the ER sooner if needed. She and her family verbalized understanding. LIZETTE TOMLIN APRN FOR MD JANA LEONE/alec /[id number] d: 11/07/162152 t: 11/11/16 1332, OUTPATIENT REPORT
[~2016-11-07 12:17] MED LIST changes: +ALKA-SELTZER P1 EAC1 PO; +APRESOLINE25 MG PO; +BENADRYL25 MG PO; +COLESTID1 GM PO; +DELTASONE10 MG PO; +FIBER LAX625 MG PO; +FLEXERIL10 MG PO; +LASIX40 MG PO; +MAG-OX-400(241400 MG PO; +NORVASC10 MG PO; +TYLENOL EXTRA500 MG PO; +TYLENOL PM EX-1 EACH; +VITAMIN D2000 UNI1 PO; +ZITHROMAX250 MG
[2016-11-07 13:02] LABS: BASOPHIL # 0.1 K/uL (0.0-0.2); BASOPHIL % 1.2 %; EOSINOPHIL # 0.3 K/uL (0.0-0.5); HEMATOCRIT 35.4 % (33.0-46.0); HEMOGLOBIN 11.8 g/dL (10.0-15.0); IMMATURE GRANULOCYTE % 0.3 %; LYMPHOCYTE # 2.4 K/uL (0.8-4.0); MCHC 33.3 gm/dL (32.0-36.5); MCV 92.9 fl (83.0-98.0); MONOCYTE # 0.8 K/uL (0.0-1.0); MONOCYTE % 10.2 %; NEUTROPHIL # (ANC) 3.9 K/uL (1.8-7.8); NEUTROPHIL % 52.3 %; NRBC % 0 /100WBC (0-0.00); PLATELET COUNT 296 K/uL (150-450); RBC 3.81 M/uL (3.50-5.50); RDW-CV 12.3 % (11.9-14.6); WBC 7.4 K/uL (4.0-11.0)
[2016-11-07 13:12] LABS: PTT 27 SECONDS (25-32)
[2016-11-07 13:26] LABS: ALBUMIN 3.2 gm/dL (3.5-5.0); ANION GAP 15.8 (10.0-19.0); CALCIUM 8.7 mg/dL (8.5-10.5); CREATININE 1.1 mg/dL (0.5-1.1); POTASSIUM 3.8 mMol/L (3.7-5.1); TOTAL PROTEIN 7.2 g/dL (6.0-8.4)
[2016-11-07 13:27] LABS: TOTAL BILIRUBIN 0.6 mg/dL (0.0-1.5)
[2016-11-07 13:29] LABS: BILIRUBIN URINE NEGATIVE (NEGATIVE); BLOOD URINE NEGATIVE /UL (NEGATIVE); COLOR URINE STRAW (YELLOW); GLUCOSE URINE NEGATIVE (NEGATIVE); KETONE URINE NEGATIVE (NEGATIVE); LEUKOCYTES URINE NEGATIVE /UL (NEGATIVE); NITRITE URINE NEGATIVE (NEGATIVE); PROTEIN URINE NEGATIVE (NEGATIVE); SPEC GRAVITY URINE 1.005 (1.003-1.035); TURBIDITY URINE CLEAR (CLEAR); UROBILINOGEN URINE NORMAL (NORMAL)
== END 2016-11-07 15:07 | disposition disaster alternative care site (69) ==
LOC: GMED 12:17
PROVIDERS: Family Medicine; Nurse Practitioner Family
DX: E86.0 Dehydration (principal); R53.1 Weakness; J44.9 Chronic obstructive pulmonary disease, unspecified; I25.10 Atherosclerotic heart disease of native coronary artery without angina pectoris; I10 Essential (primary) hypertension; Z90.710 Acquired absence of both cervix and uterus
CPT/HCPCS: J7040

== ENCOUNTER → 2016-12-25 | Outpatient (CLI) | payer MEDICARE, OTHER ==
--- NOTE | ~2016-12-25 | PUL ---
PATIENT'S NAME: CANDIDO AUGUSTE [facility] AGE: 76 Y [address] ROOM: [place] [address] LOCATION: [facility] ADMIT DATE: 12/25/2016 Pulmonary DISCHARGE DATE: FAMILY PHYSICIAN: Ochoa Guzman MD ATTENDING PHYSICIAN: KORI MEZA NAME OF PROCEDURE: Six Minute Walk Test DATE OF PROCEDURE: December 25, 2016 TECH: ATripe, PRINTED CIRCUIT BOARD PANELS PLATER REASON FOR EXAM: COPD RESULTS: The test was performed on room air. The patient walked for 675 feet at a pace of 1.28 miles/hour. She had one period of rest. Her oxygen saturation was 94% at the beginning of the test, and 93% at the end of the test. She had appropriate increases in her heart rate and her blood pressure was elevated at the beginning and throughout the test, and after the test as well. Her perceived dyspnea was 6/10 on the Mendy scale. PHYSICIAN INTERPRETATION: The patient has moderate limitation in her exercise capacity but without significant desaturations or hypoxia on room air during exercise. MD SILVERIO JIMENEZ/carlos /[id number] dtt: 12/29/16 1105 SUSANA RADU F dtd: 12/26/16 0740
--- NOTE | ~2016-12-25 | PUL ---
PATIENT'S NAME: CANDIDO AUGUSTE [facility] AGE: 76 Y [address] ROOM: [place] [address] LOCATION: [facility] ADMIT DATE: 12/25/2016 Pulmonary DISCHARGE DATE: FAMILY PHYSICIAN: Ochoa Guzman MD ATTENDING PHYSICIAN: KORI MEZA NAME OF PROCEDURE: Pulmonary Function Test DATE OF PROCEDURE: November 25, 2016 TECH: ATripe, PIPE THREADING MACHINE OPERATOR REASON FOR EXAM: COPD RESULTS: 1. FVC was 1.71 liters which is 60% of predicted and low, FEV1 was 1.01 liters which is 47% of predicted and low, and FEV1/FVC was 59% and low. The flow volume curve revealed significant airflow limitation. There is a suggestion also of restrictive lung disease. After bronchodilator administration FVC decreased to 1.65 liters and FEV1 decreased to 0.93 liters. FEV1/FVC was 56%. 2. Adjusted DLCO was 12 which is 55% of predicted and low. 3. Lung volumes could not be performed. 4. PH was 7.46, pCO2 was 42, pO2 was 74 while on room air. The base excess was 5.5. PHYSICIAN INTERPRETATION: The patient has severe airflow limitation without a significant bronchodilator response. Her diffusion capacity is moderately low. There is suggestion of restrictive lung disease but lung volumes are needed to confirm that. She has mild metabolic alkalosis without adequate respiratory compensation at rest while on room air. There is no evidence of hypoxia. MD SILVERIO JIMENEZ/carlos /[id number] dtt: 12/29/16 1102 , KORI MEZA dtd: 12/26/16 0737
[2016-12-25 09:29] LABS: BICARBONATE 29.9 mmol/L (18.0-23.0); PCO2 42 mmHg (35-45); PO2 74 mmHg (80-90)
== END | disposition disaster alternative care site (69) ==
LOC: GRTH 08:49
PROVIDERS: Internal Medicine Critical Care Medicine
DX: J44.9 Chronic obstructive pulmonary disease, unspecified (principal)

== ENCOUNTER → 2016-12-30 | Outpatient (CLI) | payer MEDICARE, OTHER | END | disposition disaster alternative care site (69) | LOC: GRAD 17:53 | DX: M54.6 Pain in thoracic spine (principal) ==